=== PATIENT | female | born 1935 | race Caucasian/White ===

== ENCOUNTER 2017-12-16 08:02 | Inpatient (IN) | payer OTHER ==
[~2017-12-16] VITALS: Ht 154.9 cm; Wt 84.4 kg
[2017-12-16] VITALS (7 sets, daily range): BP systolic 106–135; BP diastolic 54–79
--- NOTE | ~2017-12-16 | EKG ---
[address] [address] ELECTROCARDIOGRAM REPORT Name: WIN WALSH Room #: 437-P ADM IN M.R.#: [id number] Admission: 12/16/17 Attend Phys: Lalo Salgado MD Discharge: Date of : 39 Report #: [id number] THIS REPORT FOR: //name// [facility] Test Date: 2017-12-19 Test Time: 10:21:25 Pat Name: WIN WALSH Department: Room: 437 P Gender: F Bedspread Cutter: Rojas SHELTON : 1935 Requested By: Lalo Salgado Order Number: [id number] MD: Cipriano Barclay Measurements Intervals [place] Rate: 112 P: MN: QRS: 51 QRSD: 70 T: -76 QT: 322 QTc: 440 Interpretive Statements Atrial fibrillation Low voltage, extremity leads Minimal ST depression, anterolateral leads Baseline wander in lead(s) V2 Compared to ECG 09/24/2016 17:19:39 ST (T wave) deviation now present Electronically Signed On 12-19-2017 15:05:53 [employer] by Cipriano Barclay [email or web address] <ELECTRONICALLY SIGNED> By: Cipriano Barclay MD 12/19/17 1505 1021 1021 Cipriano Barclay MD /EPI
--- NOTE | ~2017-12-16 | HC ---
[facility] [place] [address] CONSULTATION Name: WIN WALSH Room #: 437-P [facility] IN M.R.#: [id number] Admission: 12/16/17 Attend Phys: Lalo Salgado MD Discharge: Date of : 39 Report #: [id number] THIS REPORT FOR: //name// CC: Lalo Abdul DATE OF SERVICE: 12/16/2017 CHIEF COMPLAINT: Sacral pressure ulceration. HISTORY OF PRESENT ILLNESS: This is an 82-year-old female patient who was admitted to the hospital with a history of hypertension, diabetes mellitus and urinary tract infection with general debility. She was noted to have a sacral ulceration and wound care team has been consulted in this regard. The patient denies significant pain in that area and has not had significant ulcerations in the past. PAST MEDICAL HISTORY: Positive for bilateral hip replacements, bilateral knee replacement, back surgery in 2016, diabetes, hypertension, congestive heart failure, history of congestive heart failure, carcinoma of the cecum, atrial fibrillation, pulmonary emboli, history of GI bleeding. PAST SURGICAL HISTORY: She is status post right hemicolectomy. SOCIAL HISTORY: The patient is a former smoker, never used recreational drugs. No alcohol consumption. REVIEW OF SYSTEMS: CONSTITUTIONAL: The patient denies fever, chills or weight loss. NEUROLOGICAL: The patient denies focal weakness. ENT: The patient denies earache, nasal drainage, sore throat. CARDIOVASCULAR: The patient denies chest pain, palpitations, diaphoresis. PULMONARY: The patient denies cough, shortness of breath. GASTROINTESTINAL: The patient denies nausea, vomiting, diarrhea or abdominal pain. ORTHOPEDIC: The patient has pain and swelling in the extremities, is aware of the pressure ulceration on her buttocks. Other systems in a 14-point review of systems are negative. PHYSICAL EXAMINATION: VITAL SIGNS: At this time, pulse 88, respiration of 20, blood pressure 106/62, temperature of 97.4. GENERAL: This is a chronically ill-appearing, thin patient who appears to be in minimal distress. HEENT: Normocephalic. Nose and throat are clear. NECK: Supple. [facility] [address] [place] [address] CONSULTATION Name: WIN WALSH Room #: 437-P ADM IN M.R.#: [id number] Admission: 12/16/17 Attend Phys: Lalo Slagado MD Discharge: Date of : 39 Report #: [id number] LUNGS: Clear. ABDOMEN: Soft. Bowel sounds present. Examination of the sacral region demonstrates what appears to be very small stage 2 pressure ulcer in the gluteal region with a small blister to the opposite side. There is no depth, tunneling, undermining or evidence of any other deep tissue injuries. Heels are intact. CLINICAL IMPRESSION: 1. Stage 3 pressure ulcer to the sacral and gluteal region. 2. Urinary tract infection. 3. History of diabetes mellitus. 4. Moderate protein calorie malnutrition. RECOMMENDATIONS: The patient will be recommended a moisture barrier cream to the affected area. Recommend turning repositioning and nutritional assessment to maximize wound healing. I think with simple offloading, this should improve. At this point in time, the patient will be followed by the wound care nurse while here in the hospital. We will be available should there be any further change in her status. Otherwise, we will sign off and be available at any point. I appreciate being asked to see her in consultation. <ELECTRONICALLY SIGNED> By: Arnol Good MD 12/19/17 1023 1604 1921 Arnol Good MD /nt
[~2017-12-16 08:02] MED LIST: ACCUPRIL40 MG PO; ADULT LOW DOSE81 MG PO; AMARYL1 MG PO; AMARYL2 MG; AMLODIPINE BESYL5 MG PO; ANTIFUNGAL CREA28 GM TOP; ATENOLOL 100MG100 M2 PO; ATENOLOL 25 MG25 M1 PO; CALCIUM 500 +1 EAC5 PO; CALCIUM OYSTER500 MG PO; CENTRUM SILVER1 EAC4 PO; CHLORTHALIDONE25 MG; DOXYCYCLINE 10100 MG PO; ENOXAPARIN100 MG/11 SUBQ; FISH OIL 1,0001 EAC5 PO; FISH OIL 1,001000 M2 PO; FUROSEMIDE 40 M40 M1 PO; K-DUR 20 MEQ T20 MEQ PO; LASIX 40 MG TAB40 M2 PO; LIPITOR40 MG PO; MIRALAX17 GM PO; NORCO 5-325 TA1 EACH PO; ONE-A-DAY WOMENS PO; OXYGEN MISCELL; POTASSIUM20 PO; PRADAXA75 MG PO; PRILOSEC20 MG PO; PROTONIX40 M1 PO; SENNA S TABLET1 EACH PO; TYLENOL325 MG PO; VASOLEX OINTMENT5 GM TP; VITAMIN D3400 UNIT PO; [UNRECOGNIZED DRUG - OTHER] PO
[2017-12-16 08:42] LABS: RDW 19.2 % (10.5-14.5)
[2017-12-16 08:46] LABS: HEMATOCRIT 37.5 % (37.0-47.0); HEMOGLOBIN 11.8 gm/dL (12.0-15.0); MCH 24.9 pg (26.0-34.0); MCHC 31.5 g/dL (28.0-37.0); RBC 4.75 mil/uL (4.20-5.00); WBC 9.1 thou/uL (4.0-11.0)
[2017-12-16 08:49] LABS: URINE BILIRUBIN NEGATIVE (Negative); URINE BLOOD NEGATIVE (Negative); URINE CLARITY CLEAR; URINE COLOR YELLOW; URINE GLUCOSE-RANDOM* NEGATIVE (Negative); URINE KETONES NEGATIVE (Negative); URINE NITRITE-REFLEX NEGATIVE (Negative); URINE PROTEIN (DIPSTICK) NEGATIVE (Negative)
[2017-12-16 08:50] LABS: CALCIUM 9.3 mg/dL (8.5-10.1); CREATININE 0.8 mg/dL (0.6-1.0); POTASSIUM 4.2 mmol/L (3.5-5.1)
[2017-12-16 08:53] LABS: URINE LEUKOCYTES-REFLEX 1+ (Negative)
[2017-12-16 08:56] LABS: ALBUMIN 2.6 g/dL (3.4-5.0); TOTAL BILIRUBIN 0.8 mg/dL (<0.1-1.0); TOTAL PROTEIN 6.7 g/dL (6.4-8.2)
[2017-12-16 09:04] LABS: CASTS None Seen /LPF (None Seen); SQUAMOUS 4-10 Moderate /LPF (0-3)
[2017-12-16 09:05] LABS: CRYSTALS None Seen /LPF (None Seen); URINE RBC 0-2 Rare /HPF (0-2); WBC CLUMPS Few (None Seen)
[2017-12-16 12:08] LABS: FOLIC ACID 11.6 ng/mL (8.6-58.9)
[2017-12-17 04:35] VITALS: BP 117/56
[2017-12-17 12:47] LABS: CALCIUM 9.3 mg/dL (8.5-10.1); CREATININE 0.8 mg/dL (0.6-1.0); MAGNESIUM 1.8 mg/dL (1.8-2.4)
[2017-12-17 12:48] LABS: % SATURATION 9 % (20-39); IRON 17 ug/dL (50-170); TIBC 196 ug/dL (250-450)
[2017-12-17 15:45] VITALS: BP 134/68
[2017-12-17 19:29] VITALS: BP 140/75
[2017-12-18 04:59] VITALS: BP 131/85
[2017-12-18 07:30] VITALS: BP 135/76
[2017-12-18] MEDS ORDERED: NORVASC5 MG PO (09:40)
[2017-12-18] MEDS ORDERED: TRAZODONE HCL50 MG PO (09:41)
[2017-12-18] MEDS ORDERED: ARICEPT 5 MG TAB5 MG PO (09:41)
[2017-12-18] MEDS ORDERED: SSD CREAM 1% 5050 GM TOP (09:43)
[2017-12-18] MEDS ORDERED: KLOR-CON 1010 MEQ PO (09:43)
[2017-12-18] MEDS ORDERED: CALCIUM 600 +1 EAC1 PO (09:44)
[2017-12-18 09:55] LABS: HEMATOCRIT 35.9 % (37.0-47.0); HEMOGLOBIN 11.2 gm/dL (12.0-15.0); MCH 25.1 pg (26.0-34.0); MCHC 31.1 g/dL (28.0-37.0); MCV 80.6 fL (80.0-100.0); RBC 4.45 mil/uL (4.20-5.00); RDW 19.4 % (10.5-14.5)
[2017-12-18 10:08] LABS: CREATININE 0.9 mg/dL (0.6-1.0)
[2017-12-18 15:40] VITALS: BP 146/67
[2017-12-18 20:20] VITALS: BP 121/72
[2017-12-19 05:16] VITALS: BP 130/64
[2017-12-19 07:27] VITALS: BP 135/93
[2017-12-19 09:18] LABS: HEMATOCRIT 35.6 % (37.0-47.0); MCH 24.5 pg (26.0-34.0); MCV 79.1 fL (80.0-100.0); RBC 4.5 mil/uL (4.20-5.00); RDW 19.2 % (10.5-14.5); WBC 13.9 thou/uL (4.0-11.0)
[2017-12-19 09:39] LABS: CALCIUM 9.3 mg/dL (8.5-10.1); CREATININE 0.8 mg/dL (0.6-1.0); POTASSIUM 3.5 mmol/L (3.5-5.1)
[2017-12-19 15:35] VITALS: BP 142/85
[2017-12-19 20:34] VITALS: BP 118/83
[2017-12-20 03:07] VITALS: BP 119/64
[2017-12-20 03:35] VITALS: BP 131/87
[2017-12-20 05:44] LABS: HEMATOCRIT 34.2 % (37.0-47.0); HEMOGLOBIN 10.7 gm/dL (12.0-15.0); MCH 24.3 pg (26.0-34.0); MCHC 31.2 g/dL (28.0-37.0); MCV 77.9 fL (80.0-100.0); RBC 4.39 mil/uL (4.20-5.00); RDW 19.1 % (10.5-14.5); WBC 12.7 thou/uL (4.0-11.0)
[2017-12-20 06:03] LABS: CALCIUM 8.9 mg/dL (8.5-10.1); CREATININE 0.7 mg/dL (0.6-1.0); MAGNESIUM 1.8 mg/dL (1.8-2.4); POTASSIUM 3.9 mmol/L (3.5-5.1)
[2017-12-20 08:00] VITALS: BP 137/93
[2017-12-20] MEDS ORDERED: DEPAKOTE 250MG250 M1 PO (13:43)
[2017-12-20] MEDS ORDERED: CEFDINIR300 MG PO (13:44)
[2017-12-20 13:49] VITALS: BP 137/93
[2017-12-20 13:54] VITALS: BP 137/93
[2017-12-20 13:56] VITALS: BP 137/93
== END 2017-12-20 15:03 | disposition home or self-care (01) | DRG 871 ==
LOC: ER 08:02 → 4S 09:23 → EROBS 09:23 → 4S 10:55
PROVIDERS: Emergency Medicine; Internal Medicine; Nurse Practitioner
DX: A41.9 Sepsis, unspecified organism (principal); L89.153 Pressure ulcer of sacral region, stage 3; G93.40 Encephalopathy, unspecified; N39.0 Urinary tract infection, site not specified; E44.0 Moderate protein-calorie malnutrition; E11.9 Type 2 diabetes mellitus without complications; I50.9 Heart failure, unspecified; I11.0 Hypertensive heart disease with heart failure; E78.5 Hyperlipidemia, unspecified; G30.9 Alzheimer's disease, unspecified; F02.80 Dementia in other diseases classified elsewhere, unspecified severity, without behavioral disturbance, psychotic disturbance, mood disturbance, and anxiety; I48.0 Paroxysmal atrial fibrillation; Z96.643 Presence of artificial hip joint, bilateral; Z96.651 Presence of right artificial knee joint; Z85.038 Personal history of other malignant neoplasm of large intestine; Z86.711 Personal history of pulmonary embolism; Z79.82 Long term (current) use of aspirin; Z86.718 Personal history of other venous thrombosis and embolism; Z79.899 Other long term (current) drug therapy; Z28.21 Immunization not carried out because of patient refusal; Z87.891 Personal history of nicotine dependence; Z68.35 Body mass index [BMI] 35.0-35.9, adult; Z88.2 Allergy status to sulfonamides
CPT/HCPCS: 10195